=== PATIENT | male | born 1965 | race American Indian/Alaskan Native ===

== ENCOUNTER 2019-02-28 05:46 | Observation (INO) | payer MEDICARE ==
--- NOTE | 2019-02-18 11:27 | Anesthesia Consultation ---
Anesthesia Consult and Med Hx Date of service: 02/18/19 - Airway Anesthetic Teeth Evaluation: Bridges ROM Head & Neck: Adequate Mental/Hyoid Distance: Adequate Mallampati Class: Class II Intubation Access Assessment: Good - Pulmonary Exam CTA: Yes - Cardiac Exam Cardiac Exam: RRR - Pre-Operative Health Status ASA Pre-Surgery Classification: ASA3 Proposed Anesthetic Plan: General (Hx of ESRD on HD, HTN, DM, CAD contacted plant operations worker and they will send clearance over to us, for GA) - Pulmonary Hx Smoking: No SOB: No Hx Sleep Apnea: No (MAR PRE SCREEN HIGH RISK- HAD POSITIVE SLEEP STUDY, BUT WAS TIERA HE DID ) - Cardiovascular System Hx Hypertension: Yes (X 3 YRS) Hx Coronary Artery Disease: No Hx Heart Attack/AMI: No Hx Angina: No Hx Percutaneous Transluminal Coronary Angioplasty (PTCA): No Hx Pacemaker: No Hx Internal Defibrillator: No Hx Valvular Heart Disease: No Hx Heart Murmur: No Hx Peripheral Vascular Disease: Yes (LARS LEGS- LEFT BKA) - Central Nervous System Hx Psychiatric Problems: No - Endocrine Hx Renal Disease: Yes (dialysis: Tues, Thurs, Sat) Hx End Stage Renal Disease: Yes (DIALYSIS SINCE 2013) Hx Liver Disease: No Hx Hypothyroidism: No Hx Hyperthyroidism: No - Hematic Hx Anemia: Yes - Other Systems Hx Alcohol Use: Yes Hx Substance Use: Yes (HX COCAINE ABUSE) Hx Cancer: No
[~2019-02-28 05:46] MED LIST: NACL 0.9% 1000 ML 1,000 ML IV SCH; VERSED IV NR
[2019-02-28] MEDS ORDERED: NACL BACTERIOSTATIC INFILTRATI ONE (06:33)
[2019-02-28 06:57] LABS: Basophils % (Auto) 0.8 % (0.0-1.8); Eosinophils # (Auto) 0.1 K/mm3 (0.0-0.4); Eosinophils % (Auto) 2.2 % (0.0-4.3); Hematocrit 32.6 % (35.5-45.6); Hemoglobin 10.6 gm/dl (11.8-15.2); Lymphocytes # (Auto) 1.2 K/mm3 (1.2-5.4); Lymphocytes % (Auto) 33.7 % (13.4-35.0); Mean Corpuscular HGB Conc 33 % (32-34); Mean Corpuscular Volume 83 fl (84-94); Monocytes # (Auto) 0.3 K/mm3 (0.0-0.8); Monocytes % (Auto) 8.7 % (0.0-7.3); Platelet Count 161 K/mm3 (140-440); Red Blood Count 3.94 M/mm3 (3.65-5.03); Red Cell Distribution Width 17.8 % (13.2-15.2)
[2019-02-28] MEDS ORDERED: SUBLIMAZE IV PRN (07:05)
[2019-02-28] MEDS ORDERED: ZOFRAN IV PRN ×2 (07:05→09:52)
[2019-02-28] MEDS ORDERED: TYLENOL PO NR (07:10)
--- NOTE | 2019-02-28 07:11 | Anesthesia Day of Surgery ---
Anesthesia Day of Surgery - Day of Surgery Patient Examined: Yes Patient H&P Reviewed: Yes Patient is NPO: Yes
[2019-02-28] MEDS ORDERED: GENTAMICIN ONE (07:22)
[2019-02-28] MEDS ORDERED: RIFADIN ONE (07:22)
[2019-02-28] MEDS ORDERED: NACL P/F VIAL (10 ML) 10 ML ONE (07:22)
[2019-02-28] MEDS ORDERED: NACL 0.9% 500 ML 500 ML ONE (07:22)
[2019-02-28] MEDS ORDERED: MARCAINE 0.5% INFILTRATI ONE ×2 (07:26→08:59)
[2019-02-28] MEDS ORDERED: GENTAMICIN/NS 80 MG/100 ML 100 ML IV NR (07:30)
[2019-02-28] MEDS ORDERED: DIPRIVAN 10 MG/ML IV ONE (07:31)
[2019-02-28] MEDS ORDERED: SUBLIMAZE ONE (07:31)
[2019-02-28] MEDS ORDERED: GENTAMICIN 80 MG in NACL 0.9% 100 ML IV SCH (07:44)
[2019-02-28] MEDS ORDERED: NEOSPORIN GU IR ONE ×2 (07:48→09:02)
[2019-02-28] MEDS ORDERED: SODIUM BICARBONATE IV ONE (07:49)
[2019-02-28 07:50] LABS: INR 1.09 (0.87-1.13)
[2019-02-28] MEDS ORDERED: NACL 0.9% 50 ML ONE (07:50)
[2019-02-28 07:51] LABS: Partial Thromboplastin Time 26.9 Sec. (24.2-36.6)
[2019-02-28] MEDS ORDERED: GENTAMICIN/NS 80 MG/100 ML 100 ML IV ONE (07:52)
[2019-02-28 07:53] LABS: Calcium 10.1 mg/dL (8.4-10.2)
[2019-02-28] MEDS ORDERED: NEURONTIN PO NR (08:00)
[2019-02-28] MEDS ORDERED: ZOFRAN ONE (08:00)
[2019-02-28] MEDS ORDERED: VERSED IV NR (08:00)
[2019-02-28] MEDS ORDERED: NEO SYNEPHRINE/NS Syringe(OR USE) IV ONE (08:00)
[2019-02-28] MEDS ORDERED: VANCOMYCIN 1,500 MG in NACL 0.9% 500 ML 500 ML IV NR (08:00)
[2019-02-28] MEDS ORDERED: VANCOMYCIN/NS 1 GM/250 ML 1 GM/250 ML BAG IV NR (08:00)
[2019-02-28] MEDS ORDERED: NACL 0.9% IV ONE (08:59)
[2019-02-28] MEDS ORDERED: RIFADIN IV ONE (09:00)
[2019-02-28] MEDS ORDERED: NACL 0.9% 500 ML IRRIGATION ONE (09:01)
[2019-02-28] MEDS ORDERED: NACL 0.9% IR ONE (09:04)
[2019-02-28] MEDS ORDERED: NACL P/F VIAL (10 ML) INFILTRATI ONE (09:04)
--- NOTE | 2019-02-28 09:49 | Short Stay Summary ---
Short Stay Documentation Date of service: 02/28/19 - History H&P: obtained from office - Allergies and Medications Current Medications: Allergies No Known Allergies Allergy (Verified 02/11/19 13:28) Home Medications Medication Instructions Recorded Confirmed Last Taken Type amLODIPine [Norvasc] 10 mg PO DAILY 07/16/16 02/28/19 02/28/19 04:00 History hydrALAZINE [Apresoline] 25 mg PO Q8HR 07/16/16 02/28/19 02/28/19 04:00 History Aspirin [Adult Aspirin] 81 mg PO DAILY 02/11/19 02/28/19 02/21/19 09:00 History AtorvaSTATin [Lipitor] 20 mg PO QHS 02/11/19 02/28/19 02/27/19 20:00 History Sevelamer Carbonate [Renvela] 3 tab PO TID 02/11/19 02/28/19 02/27/19 17:00 History Carvedilol [Coreg] 25 mg PO BID 02/18/19 02/28/19 02/28/19 04:00 History Clopidogrel [Plavix] 75 mg PO QDAY 02/18/19 02/28/19 02/21/19 09:00 History Active Medications Acetaminophen (Tylenol) 650 mg PO ONCE NR Stop: 02/28/19 16:00 Last Admin: 02/28/19 07:31 Dose: 650 mg Documented by: Celecoxib (Celebrex) 200 mg PO PREOP NR Stop: 02/28/19 16:00 Last Admin: 02/28/19 07:30 Dose: 200 mg Documented by: Fentanyl (Sublimaze) 50 mcg IV Q5MIN PRN PRN Reason: Pain , Severe (7-10) Stop: 02/28/19 16:00 Gabapentin (Neurontin) 300 mg PO PREOP NR Stop: 02/28/19 16:00 Last Admin: 02/28/19 07:31 Dose: 300 mg Documented by: Sodium Chloride (Nacl 0.9% 1000 Ml) 1,000 mls @ 42 mls/hr IV DIRECT ASHWIN Last Admin: 02/28/19 06:45 Dose: 42 mls/hr Documented by: Gentamicin Sulfate/Sodium Chloride (Gentamicin/Ns 80 Mg/100 Ml) 100 mls @ 200 mls/hr IV PREOP NR Stop: 02/28/19 10:30 Vancomycin HCl 1,500 mg/ (Sodium Chloride) 530 mls @ 333.333 mls/hr IV PREOP NR Stop: 02/28/19 10:30 Midazolam HCl (Versed) 2 mg IV PREOP NR Stop: 02/28/19 23:59 Ondansetron HCl (Zofran) 4 mg IV ONCE PRN PRN Reason: Nausea And Vomiting Stop: 02/28/19 16:00 - Brief post op/procedure progress note Date of procedure: 02/28/19 Pre-op diagnosis: ed Post-op diagnosis: same Procedure: ipp, scrotaplasty, inject corporal body Anesthesia: GETA Surgeon: CULLEN YADAV Estimated blood loss: minimal Specimen disposition: to lab (scrotal skin) Condition: stable - Hospital course Hospital course: bactrim,norco, post op info on chart post op dialysis wrap & dorantes removed home - Disposition Condition at discharge: Stable Short Stay Discharge Plan Follow up with: CHULA RAHMAN [Primary Care Provider] - 7 Days
[2019-02-28] MEDS ORDERED: NORCO 5/325 PO PRN (09:52)
[2019-02-28] MEDS ORDERED: NARCAN 0.4 MG/1 ML IV PRN (09:52)
[2019-02-28] MEDS ORDERED: NACL 0.45% 1000 ML 1,000 ML IV SCH (10:00)
--- NOTE | 2019-02-28 10:28 | Operative Report ---
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 PROCEDURE: Insertion of inflatable penile prosthesis (Coloplast Titan 21 cm with 1 cm rear tip in service coordinator implant), scrotoplasty and injection of intracorporal penile injection of pharmacologic agent. SURGEON: Yuri Chacon M.D. COMPUTER APPLICATIONS INSTRUCTOR: Natividad Segovia. ESTIMATED BLOOD LOSS: Minimal. FLUIDS: Crystalloid. COMPLICATIONS: No complications. INDICATIONS: This patient is a 53-year-old gentleman with history of hypertension and renal failure, on dialysis, presents for penile implant. He has failed nonsurgical options. Risks, benefits, and complications were explained. DESCRIPTION OF PROCEDURE: The patient was taken to the operative suite, placed in a supine position, after adequate general anesthesia, prepped and draped in a sterile fashion. Castillo catheter was placed on the operative field. A transscrotal incision was made with the Bovie. Sharp dissection was taken down to the corporal body. Stay sutures were placed, 50 mL of dilute Marcaine was injected into the right corpora. No curvature could be appreciated. A 2-0 Vicryl stay sutures were placed into the corporal bodies. Corporotomy was performed bilaterally. Gentle dilation with the measuring tool was performed, total measurements bilaterally 21 cm. A 20 cm Coloplast device was prepped with 1 cm rear tip in service coordinator. The 125 reservoir was placed in the retropubic space via the right external ring, 110 mL sterile water was placed. No back pressure could be appreciated, throughout the procedure, copious irrigation was performed. Adequate hemostasis achieved. The cylinders were placed in the corporal bodies with the aid of a Brad needle. A 2-0 Vicryl was used to close the corporotomies. Insufflation of the device took a total of 40 mL, excellent cosmetic appearance. It was deflated. The reservoir and pump was connected with the quick click connection device, tested again, adequate response. Redundant scrotal skin was excised. The pump was placed in the dependent portion of the scrotum. A 2-0 Vicryl pursestring was used to secure it in the dependent portion and then a dartos layer was closed with 2-0 Vicryl in a running fashion. Skin was closed with 3-0 Vicryl in interrupted fashion. Collodion, Xeroform gauze and mummy wrap was placed. He tolerated the procedure well and was extubated and taken to recovery room in stable condition. He will go home on Bactrim and [place]. [facility]# [id number] ALYSSA/FAVIOLA
[2019-02-28] MEDS: NORVASC PO SCH (11:45)
[2019-02-28] MEDS: ANCEF/NS 1 GM/50 ML 1 GM/50 ML BAG IV SCH (12:46)
[2019-02-28] MEDS: COREG PO SCH ×2 (13:31→21:53)
[2019-02-28] MEDS: MORPHINE IV PRN ×3 (13:31→22:02)
[2019-02-28] MEDS: RENVELA PO SCH ×2 (13:31→16:48)
[2019-02-28] MEDS: APRESOLINE PO SCH ×2 (14:47→21:53)
--- NOTE | 2019-02-28 15:45 | Consultation ---
History of Present Illness - Reason for Consult Consult date: 02/28/19 Hypertension, Diabetes, ESRD Requesting physician: CULLEN CHACON - History of Present Illness Patient is 53 yo had penile prosthesis done today by Dr. Chacon, urology for Erectile dysfunction. The hospitalist service has been consulted for management of multiple cormorbidities, hypertension, hyperlipidemia, diabetes, ESRD on dialysis --Sat, PVD s/p left BKA for gangrene. Currently only complains of mild pain at surgical site. No chest pain, no SOB. He has diabetes, not on meds, diet controlled. Past History Past Medical History: diabetes, ESRD, hypertension, hyperlipidemia, PVD, other (left BKA, VISION IMPAIRED) Past Surgical History: Other (Left BKA, cataract surg,Penile prosthesis 02/28/19 this admission) Social history: single, Lives alone, full code, other (alcohol occasionally) Family history: diabetes Medications and Allergies Allergies Allergy/AdvReac Type Severity Reaction Status Date / Time No Known Allergies Allergy Verified 02/11/19 13:28 Home Medications Medication Instructions Recorded Confirmed Last Taken Type amLODIPine [Norvasc] 10 mg PO DAILY 07/16/16 02/28/19 02/28/19 04:00 History hydrALAZINE [Apresoline] 25 mg PO Q8HR 07/16/16 02/28/19 02/28/19 04:00 History Aspirin [Adult Aspirin] 81 mg PO DAILY 02/11/19 02/28/19 02/21/19 09:00 History AtorvaSTATin [Lipitor] 20 mg PO QHS 02/11/19 02/28/19 02/27/19 20:00 History Sevelamer Carbonate [Renvela] 3 tab PO TID 02/11/19 02/28/19 02/27/19 17:00 History Carvedilol [Coreg] 25 mg PO BID 02/18/19 02/28/19 02/28/19 04:00 History Clopidogrel [Plavix] 75 mg PO QDAY 02/18/19 02/28/19 02/21/19 09:00 History Active Meds: Active Medications Acetaminophen (Tylenol) 650 mg PO ONCE NR Stop: 02/28/19 16:00 Last Admin: 02/28/19 07:31 Dose: 650 mg Documented by: Acetaminophen/Hydrocodone Bitart ([place] 5/325) 2 each PO Q6H PRN PRN Reason: Pain, Moderate (4-6) Amlodipine Besylate (Norvasc) 10 mg PO DAILY [facility] Last Admin: 02/28/19 11:45 Dose: Not Given Documented by: Atorvastatin Calcium (Lipitor) 20 mg PO QHS ASHWIN Carvedilol (Coreg) 25 mg PO BID [facility] Last Admin: 02/28/19 13:31 Dose: 25 mg Documented by: Celecoxib (Celebrex) 200 mg PO PREOP NR Stop: 02/28/19 16:00 Last Admin: 02/28/19 07:30 Dose: 200 mg Documented by: Fentanyl (Sublimaze) 50 mcg IV Q5MIN PRN PRN Reason: Pain , Severe (7-10) Stop: 02/28/19 16:00 Gabapentin (Neurontin) 300 mg PO PREOP NR Stop: 02/28/19 16:00 Last Admin: 02/28/19 07:31 Dose: 300 mg Documented by: Hydralazine HCl (Apresoline) 25 mg PO Q8HR [facility] Last Admin: 02/28/19 14:47 Dose: Not Given Documented by: Sodium Chloride (Nacl 0.45% 1000 Ml) 1,000 mls @ 42 mls/hr IV DIRECT ASHWIN Cefazolin Sodium (Ancef/Ns 1 Gm/50 Ml) 1 gm in 50 mls @ 100 mls/hr IV Q8H [facility]; Protocol Stop: 02/28/19 20:29 Last Admin: 02/28/19 12:46 Dose: 100 mls/hr Documented by: Midazolam HCl (Versed) 2 mg IV PREOP NR Stop: 02/28/19 23:59 Morphine Sulfate (Morphine) 2 mg IV Q4H PRN PRN Reason: Pain, Moderate (4-6) Last Admin: 02/28/19 13:31 Dose: 2 mg Documented by: Naloxone HCl (Narcan 0.4 Mg/1 Ml) 0.1 mg IV Q2MIN PRN PRN Reason: Res Rate </= 8 or 02 SAT < 92% Ondansetron HCl (Zofran) 4 mg IV ONCE PRN PRN Reason: Nausea And Vomiting Stop: 02/28/19 16:00 Ondansetron HCl (Zofran) 4 mg IV Q8H PRN PRN Reason: N/V unrelieved by Maria Guadalupe Sevelamer Carbonate (Renvela) 2,400 mg PO TIDWM [facility] Last Admin: 02/28/19 13:31 Dose: 2,400 mg Documented by: Review of Systems All systems: negative Exam - Physical Exam Narrative exam: Gen: Not in acute distress, lying in bed HEENT: Normocephalic, atraumatic Neck: supple, no JVD Heart: S1 and S2 reg, no murmurs, rubs or gallop Lungs: Clear, no crackles, no wheeze Abd: soft, non tender, non distended, normal BS Ext: Left BKA, No edema, no clubbing, no cyanosis, Neuro: Awake,alert, oriented,moves all ext, Genital: Dressing over penis - Constitutional Vitals: Temp Pulse Resp BP Pulse Ox 97.3 F L 66 15 116/57 99 02/28/19 11:05 02/28/19 11:05 02/28/19 11:05 02/28/19 11:05 02/28/19 11:05 Results - Labs CBC & Chem 7: 02/28/19 06:40 02/28/19 06:40 Labs: Abnormal lab results 02/28/19 02/28/19 Range/Units 06:40 06:40 WBC 3.7 L (4.5-11.0) K/mm3 Hgb 10.6 L (11.8-15.2) gm/dl Hct 32.6 L (35.5-45.6) % MCV 83 L (84-94) fl MCH 27 L (28-32) pg RDW 17.8 H (13.2-15.2) % [place] % (Auto) 8.7 H (0.0-7.3) % Potassium 5.2 H (3.6-5.0) mmol/L Chloride 96.8 L (98-107) mmol/L BUN 52 H (9-20) mg/dL Creatinine 14.9 H (0.8-1.5) mg/dL Assessment and Plan s/p Penile prosthesis today 02/28/19 for erectile dysfunction Managed by Attending, Dr. Chacon Hospitalist service consulted for management of multiple comorbidities Hypertension Monitor BP Resume home meds Norvasc and Hydralazine Diabetes mellitus type 2 Diet-controlled as per patient Get A1C accucheck qac and hs Hyperlipidemia cont Statin PVD s/p left BKA for gangrene Aspirin and Plavix on hold post surgery To be resumed when OK with Urology ESRD on dialysis Consult Nephrology second class welder since his mobile ui/ux designer, Dr. Cardenas does not come here. Hyperkalemia Mild Nephrology consulted Dialysis tomorrow Full code status. DVT prophylaxis:SCDs only because recent surg Thanks for consulting us , Dr. Chacon. Will follow.
--- NOTE | 2019-02-28 16:24 | Consultation ---
History of Present Illness - Reason for Consult Consult date: 02/28/19 end stage renal disease, hyperkalemia Requesting physician: JARED CHAU - History of Present Illness This is a 53 y/o M with PMH of ESRD on HD, HTN, anemia, DM Type 2 diet controlled, hyperlipidemia, and PVD s/p Left BKA who presented to [facility] for scheduled penile prosthesis surgery for management of organic impotence. Pt denies nausea, vomiting, diarrhea, chest pain, shortness of breath, black or bloody stool, or abdominal pain. Pt s/p penile prosthesis surgery today by Dr Chacon (Urologist). This pt undergoes outpatient dialysis at [facility] every TTS, last HD treatment was 02/26/19. Pt states he has been on HD since 2013, followed by Dr Cardenas (farm service adviser). We were consulted to evaluate this pt who has ESRD. Pt seen in his room, no specific complaints voiced, no family at bedside Past History Past Medical History: anemia, diabetes, dialysis, ESRD, hypertension, hyperlipidemia Social history: alcohol abuse, other (substance abuse (cocaine ) per medical record) Medications and Allergies Allergies Allergy/AdvReac Type Severity Reaction Status Date / Time No Known Allergies Allergy Verified 02/11/19 13:28 Home Medications Medication Instructions Recorded Confirmed Last Taken Type amLODIPine [Norvasc] 10 mg PO DAILY 07/16/16 02/28/19 02/28/19 04:00 History hydrALAZINE [Apresoline] 25 mg PO Q8HR 07/16/16 02/28/19 02/28/19 04:00 History Aspirin [Adult Aspirin] 81 mg PO DAILY 02/11/19 02/28/19 02/21/19 09:00 History AtorvaSTATin [Lipitor] 20 mg PO QHS 02/11/19 02/28/19 02/27/19 20:00 History Sevelamer Carbonate [Renvela] 3 tab PO TID 02/11/19 02/28/19 02/27/19 17:00 History Carvedilol [Coreg] 25 mg PO BID 02/18/19 02/28/19 02/28/19 04:00 History Clopidogrel [Plavix] 75 mg PO QDAY 02/18/19 02/28/19 02/21/19 09:00 History Active Meds: Active Medications Acetaminophen/Hydrocodone Bitart ([place] 5/325) 2 each PO Q6H PRN PRN Reason: Pain, Moderate (4-6) Amlodipine Besylate (Norvasc) 10 mg PO DAILY [facility] Last Admin: 02/28/19 11:45 Dose: Not Given Documented by: Atorvastatin Calcium (Lipitor) 20 mg PO QHS [facility] Carvedilol (Coreg) 25 mg PO BID [facility] Last Admin: 02/28/19 13:31 Dose: 25 mg Documented by: Hydralazine HCl (Apresoline) 25 mg PO Q8HR [facility] Last Admin: 02/28/19 14:47 Dose: Not Given Documented by: Sodium Chloride (Nacl 0.45% 1000 Ml) 1,000 mls @ 42 mls/hr IV DIRECT [facility] Cefazolin Sodium (Ancef/Ns 1 Gm/50 Ml) 1 gm in 50 mls @ 100 mls/hr IV Q8H [facility]; Protocol Stop: 02/28/19 20:29 Last Admin: 02/28/19 12:46 Dose: 100 mls/hr Documented by: Midazolam HCl (Versed) 2 mg IV PREOP NR Stop: 02/28/19 23:59 Morphine Sulfate (Morphine) 2 mg IV Q4H PRN PRN Reason: Pain, Moderate (4-6) Last Admin: 02/28/19 13:31 Dose: 2 mg Documented by: Naloxone HCl (Narcan 0.4 Mg/1 Ml) 0.1 mg IV Q2MIN PRN PRN Reason: Res Rate </= 8 or 02 SAT < 92% Ondansetron HCl (Zofran) 4 mg IV Q8H PRN PRN Reason: N/V unrelieved by Maria Guadalupe Sevelamer Carbonate (Renvela) 2,400 mg PO TIDWM [facility] Last Admin: 02/28/19 13:31 Dose: 2,400 mg Documented by: Review of Systems Constitutional: no fever Cardiovascular: no chest pain, no shortness of breath Respiratory: no shortness of breath, no dyspnea on exertion Gastrointestinal: no abdominal pain, no nausea, no vomiting, no diarrhea, no constipation Genitourinary Male: impotence Integumentary: no wounds Neurological: no weakness, no numbness, no tingling, no change in speech Exam - Vital Signs Vital signs: Vital Signs Temp Pulse Resp BP Pulse Ox 97.8 F 82 20 153/68 98 02/18/19 11:17 02/18/19 11:17 02/18/19 11:17 02/18/19 11:17 02/18/19 11:17 - General Appearance General appearance: well-developed EENT: ATNC Neck: Present: neck supple Respiratory: Decreased Breath Sounds Heart: regular, S1S2, other (ACCESS: Left AVF + thrill and bruit noted) Gastrointestinal: Present: normoactive bowel sounds. Absent: tenderness Integumentary: warm and dry Neurologic: alert and oriented x3 Musculoskeletal: Present: other (Left BKA noted; no edema to RLE) Psychiatric: mood/affect appropriate, cooperative Results - Lab Results 02/28/19 06:40 02/28/19 06:40 Most recent lab results Calcium 10.1 mg/dL (8.4-10.2) 02/28/19 06:40 Assessment and Plan End Stage Renal Disease on HD: Hyperkalemia: - Labs reviewed, K+ level was slightly elevated at 5.2 today - No acute indication for HD today - HD tomorrow for gentle UF and clearance - Assess need for HD on daily basis - Left AVF + thrill and bruit noted - On renvela 2400 mg po TID with meals - Check phosphorus and PTH in am - Renally dose meds - Renal diet with low potassium content - This pt undergoes outpatient HD at [facility] every TTS - Renal plan d/w Dr Patterson Organic Impotence: - S/p insertion of inflatable penile prosthesis, scrotoplasty, and injection of intracorporal penile injection of pharmacologic agent on 02/28/[address] Chacon (Urologist) - As per Urology recs Essential Hypertension: - Restarted on home medications - Will adjust medications if needed Diabetes Mellitus Type 2 diet controlled: - Pt reports diet controlled DM - As per primary team Anemia: - Monitor for need for Epogen
[2019-02-28] MEDS ORDERED: NACL 0.9% 100 ML IV PRN (16:42)
[2019-02-28 21:39] LABS: Hepatitis B Surface Antigen Non-Reactive (Negative); Hepatitis C Virus Antibody Non-Reactive (NonReactive)
[2019-03-01] MEDS: MORPHINE IV PRN ×2 (04:38→10:28)
[2019-03-01] MEDS: ANCEF/NS 1 GM/50 ML 1 GM/50 ML BAG IV SCH (05:36)
[2019-03-01 06:31] LABS: Hematocrit 24.3 % (35.5-45.6); Hemoglobin 7.9 gm/dl (11.8-15.2); Mean Corpuscular HGB Conc 33 % (32-34); Mean Corpuscular Volume 83 fl (84-94); Platelet Count 110 K/mm3 (140-440); Red Blood Count 2.91 M/mm3 (3.65-5.03); Red Cell Distribution Width 17.6 % (13.2-15.2)
[2019-03-01 06:48] LABS: Calcium 7.2 mg/dL (8.4-10.2)
[2019-03-01] MEDS: APRESOLINE PO SCH ×2 (06:51→16:09)
[2019-03-01] MEDS ORDERED: NACL 0.45% 1,000 ML IV SCH (09:00)
[2019-03-01] MEDS: RENVELA PO SCH ×3 (09:44→16:09)
[2019-03-01] MEDS: COREG PO SCH (10:22)
[2019-03-01] MEDS: NORVASC PO SCH (10:30)
--- NOTE | 2019-03-01 12:54 | Progress Note ---
Assessment and Plan End Stage Renal Disease on HD: Hyperkalemia: - HD today for gentle UF and clearance - Assess need for HD on daily basis - Left AVF + thrill and bruit noted - On renvela 2400 mg po TID with meals - Renally dose meds - Renal diet with low potassium content - This pt undergoes outpatient HD at [facility] every TTS Organic Impotence: - S/p insertion of inflatable penile prosthesis, scrotoplasty, and injection of intracorporal penile injection of pharmacologic agent on 02/28/[address] Chacon (Urologist) - As per Urology recs Essential Hypertension: - Restarted on home medications - Will adjust medications if needed Diabetes Mellitus Type 2 diet controlled: - Pt reports diet controlled DM - As per primary team Anemia: - Monitor for need for Epogen Subjective Date of service: 03/01/19 Principal diagnosis: ESRD on HD Interval history: seen during HD, tolerating Objective - Vital Signs Vital signs: Vital Signs - 12hr 03/01/19 03/01/19 03/01/19 04:16 04:38 06:51 Temperature 97.6 F Pulse Rate 74 74 Respiratory 20 17 Rate Respiratory Rate [Right Foot] Blood Pressure 141/69 141/74 O2 Sat by Pulse 96 Oximetry 03/01/19 03/01/19 03/01/19 08:19 10:00 10:28 Temperature 97.4 F L Pulse Rate 74 Respiratory 18 18 Rate Respiratory 17 Rate [Right Foot] Blood Pressure 150/70 O2 Sat by Pulse 96 Oximetry - General Appearance General appearance: well-developed, well-nourished, appears stated age EENT: ATNC, PERRL, mucous membranes moist Neck: no JVD, no carotid bruit Respiratory: Present: Clear to Ascultation. Absent: Rales, Ronchi Cardiology: regular, S1S2 Gastrointestinal: normoactive bowel sounds, no tenderness, no distended Integumentary: no rash, warm and dry Neurologic: no focal deficit, no asterixis, alert and oriented x3 Musculoskeletal: other (no edema in BLE) Psychiatric: mood/affect appropriate, cooperative - Lab 03/01/19 06:00 03/01/19 06:00 Most recent lab results Calcium 7.2 mg/dL (8.4-10.2) L D 03/01/19 06:00 Phosphorus 3.90 mg/dL (2.5-4.5) 03/01/19 06:00 Medications & Allergies - Medications Allergies/Adverse Reactions: Allergies No Known Allergies Allergy (Verified 02/11/19 13:28) Home Medications: Home Medications Medication Instructions Recorded Confirmed Last Taken Type amLODIPine [Norvasc] 10 mg PO DAILY 07/16/16 02/28/19 02/28/19 04:00 History hydrALAZINE [Apresoline] 25 mg PO Q8HR 07/16/16 02/28/19 02/28/19 04:00 History Aspirin [Adult Aspirin] 81 mg PO DAILY 02/11/19 02/28/19 02/21/19 09:00 History AtorvaSTATin [Lipitor] 20 mg PO QHS 02/11/19 02/28/19 02/27/19 20:00 History Sevelamer Carbonate [Renvela] 3 tab PO TID 02/11/19 02/28/19 02/27/19 17:00 History Carvedilol [Coreg] 25 mg PO BID 02/18/19 02/28/19 02/28/19 04:00 History Clopidogrel [Plavix] 75 mg PO QDAY 02/18/19 02/28/19 02/21/19 09:00 History Active Medications: Generic Name Dose Route Start Last Admin Trade Name Freq PRN Reason Stop Dose Admin Acetaminophen/Hydrocodone Bitart 2 each 02/28/19 09:52 [place] 5/325 PO Q6H PRN Pain, Moderate (4-6) Amlodipine Besylate 10 mg 02/28/19 11:00 02/28/19 11:45 Norvasc PO Not Given DAILY ASHWIN Atorvastatin Calcium 20 mg 02/28/19 22:00 02/28/19 21:52 Lipitor PO 20 mg QHS ASHWIN Administration Carvedilol 25 mg 02/28/19 10:00 02/28/19 21:53 Coreg PO 25 mg BID ASHWIN Administration Hydralazine HCl 25 mg 02/28/19 14:00 03/01/19 06:51 Apresoline PO 25 mg Q8HR ASHWIN Administration Sodium Chloride 100 mls @ 999 mls/hr 02/28/19 16:42 Nacl 0.9% IV CALEB PRN Hypotension Sodium Chloride 1,000 mls @ 50 mls/hr 03/01/19 09:00 Nacl 0.45% IV DIRECT ASHWIN Morphine Sulfate 2 mg 02/28/19 09:52 03/01/19 10:28 Morphine IV 2 mg Q4H PRN Administration Pain, Moderate (4-6) Naloxone HCl 0.1 mg 02/28/19 09:52 Narcan 0.4 Mg/1 Ml IV Q2MIN PRN Res Rate </= 8 or 02 SAT < 92% Ondansetron HCl 4 mg 02/28/19 09:52 Zofran IV Q8H PRN N/V unrelieved by Maria Guadalupe Garcia Carbonate 2,400 mg 02/28/19 12:30 03/01/19 09:44 Renvela PO 2,400 mg TIDWM ASHWIN Administration
[2019-03-01] MEDS ORDERED: NACL 0.9 (PRIMING MACHINE ONLY DIALYSIS) MC ONE (15:01)
--- NOTE | 2019-03-01 16:35 | Progress Note ---
Assessment and Plan Assessment and plan: Patient is 53 yo had penile prosthesis done today by Dr. Chacon, urology for Erectile dysfunction. The hospitalist service has been consulted for management of multiple cormorbidities, hypertension, hyperlipidemia, diabetes, ESRD on dialysis -, PVD s/p left BKA for gangrene. Currently only complains of mild pain at surgical site. No chest pain, no SOB. He has diabetes, not on meds, diet controlled. Hypernatremia Change fluids to d51/2ns. s/p Penile prosthesis today 02/28/19 for erectile dysfunction Managed by Attending, Dr. 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 Cardenas does not come here. Hyperkalemia Mild Nephrology consulted Dialysis tomorrow Full code status. DVT prophylaxis:SCDs only because recent surg Thanks for consulting us , Dr. Chacon. Will follow. Medically stable for discharge when ok with surgery History Interval history: Patient seen and examined, resting comfortable. No new complaint. Hospitalist Physical - Physical exam Narrative exam: Gen: Not in acute distress, lying in bed HEENT: Normocephalic, atraumatic Neck: supple, no JVD Heart: S1 and S2 reg, no murmurs, rubs or gallop Lungs: Clear, no crackles, no wheeze Abd: soft, non tender, non distended, normal BS Ext: Left BKA, No edema, no clubbing, no cyanosis, Neuro: Awake,alert, oriented,moves all ext, Genital: Dressing over penis - Constitutional Vitals: Temp Pulse Resp BP Pulse Ox 97.4 F L 74 18 150/70 96 03/01/19 08:19 03/01/19 08:19 03/01/19 16:05 03/01/19 08:19 03/01/19 08:19 Results - Labs CBC & Chem 7: 03/01/19 06:00 03/01/19 06:00 Labs: Laboratory Last Values WBC 3.5 K/mm3 (4.5-11.0) L 03/01/19 06:00 RBC 2.91 M/mm3 (3.65-5.03) L 03/01/19 06:00 Hgb 7.9 gm/dl (11.8-15.2) L 03/01/19 06:00 Hct 24.3 % (35.5-45.6) L D 03/01/19 06:00 MCV 83 fl (84-94) L 03/01/19 06:00 MCH 27 pg (28-32) L 03/01/19 06:00 MCHC 33 % (32-34) 03/01/19 06:00 RDW 17.6 % (13.2-15.2) H 03/01/19 06:00 Plt Count 110 K/mm3 (140-440) L 03/01/19 06:00 Lymph % (Auto) 33.7 % (13.4-35.0) 02/28/19 06:40 [place] % (Auto) 8.7 % (0.0-7.3) H 02/28/19 06:40 Eos % (Auto) 2.2 % (0.0-4.3) 02/28/19 06:40 Baso % (Auto) 0.8 % (0.0-1.8) 02/28/19 06:40 Lymph # 1.2 K/mm3 (1.2-5.4) 02/28/19 06:40 Grant # 0.3 K/mm3 (0.0-0.8) 02/28/19 06:40 Eos # 0.1 K/mm3 (0.0-0.4) 02/28/19 06:40 Baso # 0.0 K/mm3 (0.0-0.1) 02/28/19 06:40 Seg Neutrophils % 54.6 % (40.0-70.0) 02/28/19 06:40 Seg Neutrophils # 2.0 K/mm3 (1.8-7.7) 02/28/19 06:40 PT 13.8 Sec. (12.2-14.9) 02/28/19 06:55 INR 1.09 (0.87-1.13) 02/28/19 06:55 APTT 26.9 Sec. (24.2-36.6) 02/28/19 06:55 Sodium 150 mmol/L (137-145) H D 03/01/19 06:00 Potassium 4.3 mmol/L (3.6-5.0) 03/01/19 06:00 Chloride 108.9 mmol/L (98-107) H 03/01/19 06:00 Carbon Dioxide 19 mmol/L (22-30) L 03/01/19 06:00 26 mmol/L 03/01/19 06:00 BUN 50 mg/dL (9-20) H 03/01/19 06:00 14.5 mg/dL (0.8-1.5) H 03/01/19 06:00 Estimated GFR 4 ml/min 03/01/19 06:00 3 % 03/01/19 06:00 Glucose 106 mg/dL (75-100) H 03/01/19 06:00 POC Glucose 138 (70-105) H 03/01/19 05:38 5.5 % (4-6) 03/01/19 06:00 Calcium 7.2 mg/dL (8.4-10.2) L D 03/01/19 06:00 Phosphorus 3.90 mg/dL (2.5-4.5) 03/01/19 06:00 0.40 mg/dL (0.1-1.2) 02/28/19 06:40 AST 10 units/L (5-40) 02/28/19 06:40 ALT 12 units/L (7-56) 02/28/19 06:40 68 units/L (35-129) 02/28/19 06:40 7.4 g/dL (6.3-8.2) 02/28/19 06:40 4.0 g/dL (3.9-5) 02/28/19 06:40 1.2 % 02/28/19 06:40 PTH Intact 309.2 pg/mL (15-65) H 03/01/19 06:00 Hepatitis A IgM Ab Non-reactive (NonReactive) 02/28/19 20:24 Hep Bs Antigen Non-reactive (Negative) 02/28/19 20:24 Hep B Core IgM Ab Non-reactive (NonReactive) 02/28/19 20:24 Non-reactive (NonReactive) 02/28/19 20:24 Active Medications - Current Medications Current Medications: Generic Name Dose Route Start Last Admin Trade Name Freq PRN Reason Stop Dose Admin Acetaminophen/Hydrocodone Bitart 2 each 02/28/19 09:52 03/01/19 16:05 [place] 5/325 PO 2 each Q6H PRN Administration Pain, Moderate (4-6) Amlodipine Besylate 10 mg 02/28/19 11:00 03/01/19 10:30 Norvasc PO Not Given DAILY ASHWIN Atorvastatin Calcium 20 mg 02/28/19 22:00 02/28/19 21:52 Lipitor PO 20 mg QHS ASHWIN Administration Carvedilol 25 mg 02/28/19 10:00 03/01/19 10:22 Coreg PO Not Given BID ASHWIN Hydralazine HCl 25 mg 02/28/19 14:00 03/01/19 16:09 Apresoline PO 25 mg Q8HR ASHWIN Administration Sodium Chloride 100 mls @ 999 mls/hr 02/28/19 16:42 Nacl 0.9% IV CALEB PRN Hypotension Sodium Chloride 1,000 mls @ 50 mls/hr 03/01/19 09:00 Nacl 0.45% IV DIRECT ASHWIN Morphine Sulfate 2 mg 02/28/19 09:52 03/01/19 10:28 Morphine IV 2 mg Q4H PRN Administration Pain, Moderate (4-6) Naloxone HCl 0.1 mg 02/28/19 09:52 Narcan 0.4 Mg/1 Ml IV Q2MIN PRN Res Rate </= 8 or 02 SAT < 92% Ondansetron HCl 4 mg 02/28/19 09:52 Zofran IV Q8H PRN N/V unrelieved by Maria Guadalupe Esquivelmer Carbonate 2,400 mg 02/28/19 12:30 03/01/19 16:09 Renvela PO 2,400 mg TIDWM ASHWIN Administration
[2019-03-01 17:00] VITALS: BP 153/76
== END 2019-03-01 18:40 | disposition home or self-care (01) ==
LOC: OR 05:46 → 3B-SURG 09:49
PROVIDERS: ADMIT Urology; ATTEND Urology
DX: N52.01 Erectile dysfunction due to arterial insufficiency (principal); E78.5 Hyperlipidemia, unspecified; I12.0 Hypertensive chronic kidney disease with stage 5 chronic kidney disease or end stage renal disease; E11.22 Type 2 diabetes mellitus with diabetic chronic kidney disease; N18.6 End stage renal disease; E11.51 Type 2 diabetes mellitus with diabetic peripheral angiopathy without gangrene; Z89.512 Acquired absence of left leg below knee; Z98.890 Other specified postprocedural states; Z79.899 Other long term (current) drug therapy; E87.5 Hyperkalemia; Z99.2 Dependence on renal dialysis; D64.9 Anemia, unspecified
CPT/HCPCS: 0200T; 36415; 54401; 80048; 80053; 80074; 82962; 83036; 83970; 84100; 85025; 85027; 85610; 85730; 88302; 96365; 96366; 96375; 96376; A9270; C1813; G0257; G0378; J0690; J1580; J2270; J2370; J2405; J2704; J3010; J3370; J3490; J7030; J7040; 88305